=== PATIENT | male | born 1970 | race Caucasian/White ===

== ENCOUNTER 2017-10-03 19:47 | Inpatient (IN) | payer OTHER ==
[2017-10-03 20:01] VITALS: BMI 24.1
--- NOTE | 2017-10-03 22:02 | HP ---
Admission ROS [facility] Chief Complaint: Seeking admission to rehab Allergies/Adverse Reactions: Allergies Allergy/AdvReac Type Severity Reaction Status Date / Time No Known Allergies Allergy Verified 10/03/17 21:58 History of Present Illness: 47 years old male with a history of alcohol dependence is seeking admission to rehab. Patient has been to previous rehab at [facility]. He has past medical history of anxiety and depression. He denies suicidal ideation at this time. This is his first admission to [facility]. Exam Limitations: No Limitations - Ebola screening Have you traveled outside of the country in the last 21 days: No Have you had contact with anyone from an Ebola affected area: No Have you been sick,other than usual withdrawal symptoms: No Do you have a fever: No - Review of Systems Constitutional: No Symptoms Reported EENT: reports: No Symptoms Reported Respiratory: reports: No Symptoms reported Cardiac: reports: No Symptoms Reported GI: reports: No Symptoms Reported : reports: No Symptoms Reported Musculoskeletal: reports: No Symptoms Reported Integumentary: reports: No Symptoms Reported Neuro: reports: No Symptoms reported Endocrine: reports: No Symptoms Reported Psychiatric: reports: No Sypmtoms Reported, Orientated x3 Other Systems: Reviewed and Negative Patient History - Patient Medical History Hx Anemia: No Hx Asthma: No Hx Chronic Obstructive Pulmonary Disease (COPD): No Hx Cancer: No Hx Cardiac Disorders: No Hx Congestive Heart Failure: No Hx Hypertension: No Hx Hypercholesterolemia: No HX Cerebrovascular Accident: No Hx Seizures: No Hx Diabetes: No Hx Gastrointestinal Disorders: No Hx Liver Disease: No Hx Genitourinary Disorders: No Hx Sexually Transmitted Disorders: No Hx Renal Disease (ESRD): No Hx Thyroid Disease: No Hx Human Immunodeficiency Virus (HIV): No (Negative July 2017) Hx Hepatitis C: No (Negative July 2017) Hx Depression: Yes Hx Suicide Attempt: No (Denies suicidal ideation at this time) Hx Bipolar Disorder: Yes Hx Schizophrenia: No - Patient Surgical History Past Surgical History: Yes Hx Neurologic Surgery: No Hx Cataract Extraction: No Hx Cardiac Surgery: No Hx Lung Surgery: No Hx Abdominal Surgery: Yes (KIDNEY SURGERY 1991) Hx Appendectomy: No Hx Cholecystectomy: No Hx Genitourinary Surgery: No Hx Orthopedic Surgery: No - PPD History Previous Implant?: No Implanted On Prior [facility] Admission?: No PPD to be Administered?: Yes - Reproductive History Patient is a Female of Child Bearing Age (11 -55 yrs old): No (MALE) - Smoking Cessation Smoking history: Current every day smoker Have you smoked in the past 12 months: Yes Aproximately how many cigarettes per day: 10 Hx Chewing Tobacco Use: No Initiated information on smoking cessation: Yes 'Breaking Loose' booklet given: 10/03/17 - Substances Abused Alcohol Route: Oral Frequency: Daily Amount used: VODKA - 1/2 LITER Age of first use: 13 Date of Last Use: 09/29/17 Family Disease History - Family Disease History Family Disease History: Diabetes: Mother (ALCOHOLIC), CA: Father (ASBESTOS RELATED- ), Other: Mother Admission Physical Exam [facility] - Vital Signs Vital Signs: Vital Signs - 24 hr 10/03/17 20:00 Temperature 97.6 F Pulse Rate 88 Respiratory 18 Rate Blood Pressure 131/91 - Physical General Appearance: Yes: Within Normal Limits HEENTM: Yes: EOMI, Normal ENT Inspection, Normal Voice, IZZY Respiratory: Yes: Lungs Clear, Normal Breath Sounds, No Respiratory Distress Neck: Yes: Supple Breast: Yes: Breast Exam Deferred Cardiology: Yes: Regular Rhythm, Regular Rate, S1, S2 Abdominal: Yes: Normal Bowel Sounds, Soft Genitourinary: Yes: Within Normal Limits Back: Yes: Normal Inspection Musculoskeletal: Yes: Within Normal Limits Extremities: Yes: Normal Inspection Neurological: Yes: Alert, Normal Mood/Affect Integumentary: Yes: Dry Lymphatic: Yes: Within Normal Limits - Diagnostic (1) Alcohol dependence with uncomplicated withdrawal Current Visit: Yes Status: Chronic (2) Anxiety Current Visit: Yes Status: Chronic (3) Depression Current Visit: Yes Status: Chronic Qualifiers: Depression Type: unspecified Qualified Code(s): F32.9 - Major depressive disorder, single episode, unspecified Cleared for Admission [facility] - Detox or Rehab [facility] Level of Care: Observation Bed Claeared for Rehab Admission: Yes [facility] Breath Alcohol Content Breath Alcohol Content: 0 Urine Drug Screen - Results Drug Screen Negative: Yes Urine Drug Screen Results: BZO-Benzodiazepines Inpatient Rehab Admission - Initial Determination Are CD services needed?: Yes Free of communicable disease: Yes Not in need of hospitalization: Yes - Rehab Admission Criteria Previous failed treatment: Yes Poor recovery environment: Yes Comorbidities: Yes Lacks judgement: No Patient is meeting Inpatient Rehab admission criteria:: Yes
[2017-10-03] MEDS ORDERED: LOPERAMIDE HCL 2 MG CAPSULE PO PRN (22:15)
[2017-10-03] MEDS ORDERED: guaiFENesin/D-METHORPHAN HB 10 ML UNIT-DOSE CUPS PO PRN (22:15)
[2017-10-03] MEDS ORDERED: NICOTINE POLACRILEX 2 MG GUM BUC PRN (22:15)
[2017-10-03] MEDS ORDERED: MAGNESIUM CITRATE 300 ML BOTTLE PO PRN (22:15)
[2017-10-03] MEDS ORDERED: P-EPHED 60MG/TRIPROLIDI 2.5MG TABLET PO PRN (22:15)
[2017-10-03] MEDS ORDERED: ACETAMINOPHEN 325 MG TABLET (FP) PO PRN (22:15)
[2017-10-03] MEDS ORDERED: MENTHOL/PHENOL 1 EACH UD MM PRN (22:15)
[2017-10-03] MEDS ORDERED: MAGNESIUM HYDROX 2400MG/30ML ORAL SUSPENSION 30 ML CUP PO PRN (22:15)
[2017-10-03] MEDS ORDERED: MAG HYDROX/AL HYDROX/SIMETH 30 ML UNIT-DOSE CUP PO PRN (22:15)
[2017-10-04] MEDS ORDERED: TUBERCULIN PPD 5 TU/0.1ML VIAL ID ONE (00:58)
[2017-10-04] MEDS: IBUPROFEN 400 MG TABLET (FP) PO PRN ×3 (00:59→21:45)
[2017-10-04] MEDS ORDERED: QUEtiapine FUMARATE 400 MG TABLET PO ONE (01:09)
[2017-10-04] MEDS ORDERED: GABAPENTIN 400 MG CAPSULE (FP) PO ONE ×2 (01:11→01:40)
--- NOTE | 2017-10-04 01:25 | PN ---
[facility] Progress Note Note: Psychiatric nurse practitioner note: Received call from RN on duty. Pt. requesting one time dose of his evening medications. Pharmacy claims reviewed. One time dose of Seroquel 400mg (reduce dosage) and gabapentin 400mg ordered.
[2017-10-04 02:26] LABS: URINE APPEARANCE CLEAR; URINE BILIRUBIN NEGATIVE (NEGATIVE); URINE BLOOD NEGATIVE (NEGATIVE); URINE COLOR LTYELLOW; URINE GLUCOSE (UA) NEGATIVE (NEGATIVE); URINE KETONE NEGATIVE (NEGATIVE); URINE LEUK ESTERASE NEGATIVE (NEGATIVE); URINE NITRITE NEGATIVE (NEGATIVE); URINE PROTEIN NEGATIVE (NEGATIVE); URINE UROBILINOGEN NEGATIVE mg/dL (0.2-1.0)
[2017-10-04] MEDS: NICOTINE 14 MG/24 HOURS TOPICAL PATCH TD SCH (10:14)
[2017-10-04] MEDS: PRENATAL VITAMINS W/ FOLIC ACID TABLET (FP) PO SCH (10:14)
[2017-10-04 10:38] LABS: HEMATOCRIT 40.3 % (35.4-49); HEMOGLOBIN 13.2 GM/dL (11.7-16.9); MCH 30.6 pg (25.7-33.7); MCHC 32.6 g/dl (32.0-35.9); MEAN CELL VOLUME 93.7 fl (80-96); MEAN PLT VOLUME 9.3 fl (7.5-11.1); PLATELET COUNT 221 K/MM3 (134-434); RBC 4.31 M/mm3 (4.00-5.60); RDW 14.5 % (11.9-15.9); WHITE BLOOD COUNT 5.8 K/mm3 (4.0-10.0)
[2017-10-04 11:14] LABS: CHLORIDE 103 mmol/L (98-107); POTASSIUM 3.8 mmol/L (3.5-5.1); SODIUM 140 mmol/L (136-145)
[2017-10-04 11:30] LABS: ALBUMIN 3.5 g/dl (3.4-5.0); ALK PHOS 65 U/L (45-117); ANION GAP 12 (8-16); BILIRUBIN,TOTAL 0.3 mg/dL (0.2-1.0); BLOOD UREA NITROGEN 17 mg/dL (7-18); CALCIUM 9.3 mg/dL (8.5-10.1); CO2 25 mmol/L (21-32); CREATININE 0.8 mg/dL (0.7-1.3); GLUCOSE,RANDOM 94 mg/dL (74-106); SGOT/AST 59 U/L (15-37); SGPT/ALT 42 U/L (12-78); TOT PROT 6.6 g/dl (6.4-8.2)
--- NOTE | 2017-10-04 11:49 | HP ---
Psychiatrist Admission - Data Date of interview: 10/04/17 Admission source: [facility] Identifying data: This is the first 5N inpatient rehabilitation admission for this 47 year old single amel, unemployed and residing with his relatives in . Medical History: lower back pain radiating to arms, s/p kidney surgery in 1991, smokes cigarettes 1/2 PPD. Psychiatric History: Patient reports first treatment in 2000 states he was anxious and his PCP started with xanax. 4-5 years later he saw the psychatrist while in rehabilitation treatment in [place](reports he lived there about 20 years) and was diagnosed as Bipolar disorder and started with Seroquel, Gabapentin and Prestiq, he reports no history of psychiatric hospitalizations, one time visited ER in [place] due to suicidal thoughts and was under observation 72 hours. Reports he was under the care of a psychiatrist at [facility] in but due to his recent relapse was d/c from the program. He currently on Seroquel 800 mg po hs, Gabapentin 400 mg po tid and Prestiq 50 mg po daily. Patient reports he was treated for alcohol addiction with Antabuse and Naltrexone and does not feel that medications were effectitve, but willing to try Campral he never was on. Physical/Sexual Abuse/Trauma History: Denies history of sexual, physical and verbal abuse. Additional Comment: Reports that mother was alcoholic. Longest period of abstinence 6 months. Vital Signs: Vital Signs - 24 hr 10/03/17 10/04/17 10/04/17 20:00 02:06 03:30 Temperature 97.6 F 98.1 F Pulse Rate 88 81 Respiratory 18 20 20 Rate Blood Pressure 131/91 120/81 10/04/17 07:40 Temperature 97.2 F L Pulse Rate 81 Respiratory 18 Rate Blood Pressure 113/69 Allergies/Adverse Reactions: Allergies Allergy/AdvReac Type Severity Reaction Status Date / Time Fish Containing Products Allergy Intermediate Hives Verified 10/04/17 00:43 Date of last physical exam: 10/04/17 Concur with the findings of this exam: Yes - Substance Abuse/Tx History Hx Alcohol Use: Yes Hx Substance Use: No Substance Use Type: Alcohol (daily ) Hx Substance Use Treatment: Yes ([facility], rehab. in [place].) Mental Status Exam - Mental Status Exam Alert and Oriented to: Time, Place, Person Cognitive Function: Good Patient Appearance: Well Groomed Mood: Hopeful Affect: Appropriate, Mood Congruent Patient Behavior: Appropriate, Cooperative Speech Pattern: Clear, Appropriate Voice Loudness: Normal Thought Process: Intact, Goal Oriented Thought Disorder: Not Present Hallucinations: Denies Suicidal Ideation: Denies Homicidal Ideation: Denies Insight/Judgement: Fair Sleep: Fair Appetite: Fair Muscle strength/Tone: Normal Gait/Station: Normal Psychiatric Findings - Problem List ([place] 1, 2,3) (1) Alcohol dependence Current Visit: Yes Status: Acute (2) Nicotine dependence Current Visit: Yes Status: Acute (3) Bipolar II disorder Current Visit: Yes Status: Acute (4) Bipolar I disorder, most recent episode depressed Current Visit: Yes Status: Acute - Initial Treatment Plan Initial Treatment Plan: Will continue his current medications, will add Campral 666 mg po tid, side-effects and benefits discussed with the patient, he agreed to start Campral, will monitor rpogress as needed.
[2017-10-04] MEDS ORDERED: PNEUMOC 13-VAL CONJ-DIP CRM/PF 0.5 ML DISP.SYRIN IM ONE (12:00)
[2017-10-04] MEDS ORDERED: FLU VACCINE QUAD 60 MCG/0.5 ML (MDV 17-18) IM ONE (12:00)
[2017-10-04] MEDS ORDERED: PNEUMOCOCCAL 23 VACCINE 0.5 ML VIAL IM ONE (12:00)
[2017-10-04] MEDS: ACAMPROSATE CALCIUM 333 MG TABLET.DR PO SCH ×2 (14:29→21:43)
[2017-10-04] MEDS: GABAPENTIN 400 MG CAPSULE (FP) PO SCH ×2 (14:29→21:43)
--- NOTE | 2017-10-04 17:12 | EKG ---
Test Reason : Blood Pressure : / mmHG Vent. Rate : 085 BPM Atrial Rate : 085 BPM P-R Int : 158 ms QRS Dur : 084 ms QT Int : 350 ms P-R-T Axes : 054 010 066 degrees QTc Int : 416 ms NORMAL SINUS RHYTHM POSSIBLE LEFT ATRIAL ENLARGEMENT BORDERLINE ECG NO PREVIOUS ECGS AVAILABLE Confirmed by TEJA CHOWDARY, KARLOS ([id number]) on 10/04/2017 5:12:31 PM Referred By: Confirmed By:KARLOS LEZAMA MD
[2017-10-04] MEDS: THIAMINE HCL 100 MG TABLET (FP) PO SCH (21:42)
[2017-10-04] MEDS: QUEtiapine FUMARATE 400 MG TABLET PO SCH ×2 (23:08→23:46)
[2017-10-05] MEDS: ACAMPROSATE CALCIUM 333 MG TABLET.DR PO SCH ×3 (06:41→21:29)
[2017-10-05] MEDS: GABAPENTIN 400 MG CAPSULE (FP) PO SCH ×3 (06:41→21:29)
[2017-10-05] MEDS: PATIENT'S OWN MEDICATION (NON-FORMULARY) (Desvenlafaxine Succinate [Pristiq] 50 MG) PO SCH (07:02)
[2017-10-05] MEDS: NICOTINE 14 MG/24 HOURS TOPICAL PATCH TD SCH (10:27)
[2017-10-05] MEDS: PRENATAL VITAMINS W/ FOLIC ACID TABLET (FP) PO SCH (10:28)
[2017-10-05] MEDS: IBUPROFEN 400 MG TABLET (FP) PO PRN (10:29)
[2017-10-05] MEDS ORDERED: NICOTINE 21 MG/24 HOURS TOPICAL PATCH TD SCH (12:04)
[2017-10-05] MEDS ORDERED: NICOTINE 21 MG/24 HOURS TOPICAL PATCH TD ONE (12:40)
[2017-10-05] MEDS: QUEtiapine FUMARATE 400 MG TABLET PO SCH (21:29)
[2017-10-05] MEDS: THIAMINE HCL 100 MG TABLET (FP) PO SCH (21:29)
[2017-10-06] MEDS: ACAMPROSATE CALCIUM 333 MG TABLET.DR PO SCH ×3 (06:07→21:19)
[2017-10-06] MEDS: GABAPENTIN 400 MG CAPSULE (FP) PO SCH ×3 (06:07→21:19)
[2017-10-06] MEDS: PATIENT'S OWN MEDICATION (NON-FORMULARY) (Desvenlafaxine Succinate [Pristiq] 50 MG) PO SCH (06:07)
[2017-10-06] MEDS: NICOTINE 21 MG/24 HOURS TOPICAL PATCH TD SCH (10:31)
[2017-10-06] MEDS: PRENATAL VITAMINS W/ FOLIC ACID TABLET (FP) PO SCH (10:31)
[2017-10-06] MEDS ORDERED: COLLOIDAL OATMEAL 1 BAR EACH TP PRN (13:55)
[2017-10-06] MEDS: IBUPROFEN 400 MG TABLET (FP) PO PRN (14:30)
[2017-10-06] MEDS: THIAMINE HCL 100 MG TABLET (FP) PO SCH (21:19)
[2017-10-06] MEDS: QUEtiapine FUMARATE 400 MG TABLET PO SCH (21:19)
[2017-10-07] MEDS: ACAMPROSATE CALCIUM 333 MG TABLET.DR PO SCH ×3 (06:02→21:17)
[2017-10-07] MEDS: PATIENT'S OWN MEDICATION (NON-FORMULARY) (Desvenlafaxine Succinate [Pristiq] 50 MG) PO SCH (06:03)
[2017-10-07] MEDS: GABAPENTIN 400 MG CAPSULE (FP) PO SCH ×3 (06:03→21:17)
[2017-10-07] MEDS: PRENATAL VITAMINS W/ FOLIC ACID TABLET (FP) PO SCH (09:55)
[2017-10-07] MEDS: NICOTINE 21 MG/24 HOURS TOPICAL PATCH TD SCH (09:56)
[2017-10-07] MEDS: IBUPROFEN 400 MG TABLET (FP) PO PRN ×2 (10:27→21:18)
[2017-10-07] MEDS: THIAMINE HCL 100 MG TABLET (FP) PO SCH (21:17)
[2017-10-07] MEDS: QUEtiapine FUMARATE 400 MG TABLET PO SCH (21:20)
[2017-10-08] MEDS: GABAPENTIN 400 MG CAPSULE (FP) PO SCH ×3 (06:09→21:21)
[2017-10-08] MEDS: PATIENT'S OWN MEDICATION (NON-FORMULARY) (Desvenlafaxine Succinate [Pristiq] 50 MG) PO SCH (06:10)
[2017-10-08] MEDS: ACAMPROSATE CALCIUM 333 MG TABLET.DR PO SCH ×3 (06:10→21:21)
[2017-10-08] MEDS: IBUPROFEN 400 MG TABLET (FP) PO PRN ×2 (06:11→14:49)
[2017-10-08] MEDS: PRENATAL VITAMINS W/ FOLIC ACID TABLET (FP) PO SCH (10:10)
[2017-10-08] MEDS: NICOTINE 21 MG/24 HOURS TOPICAL PATCH TD SCH (10:10)
[2017-10-08] MEDS: QUEtiapine FUMARATE 400 MG TABLET PO SCH (21:21)
[2017-10-08] MEDS: THIAMINE HCL 100 MG TABLET (FP) PO SCH (21:21)
[2017-10-09] MEDS: ACAMPROSATE CALCIUM 333 MG TABLET.DR PO SCH ×3 (06:02→21:22)
[2017-10-09] MEDS: PATIENT'S OWN MEDICATION (NON-FORMULARY) (Desvenlafaxine Succinate [Pristiq] 50 MG) PO SCH (06:02)
[2017-10-09] MEDS: IBUPROFEN 400 MG TABLET (FP) PO PRN ×2 (06:02→14:43)
[2017-10-09] MEDS: GABAPENTIN 400 MG CAPSULE (FP) PO SCH ×3 (06:02→21:22)
[2017-10-09] MEDS: NICOTINE 21 MG/24 HOURS TOPICAL PATCH TD SCH (10:05)
[2017-10-09] MEDS: PRENATAL VITAMINS W/ FOLIC ACID TABLET (FP) PO SCH (10:06)
--- NOTE | 2017-10-09 14:43 | PN ---
S Progress Note (SOAP) Subjective: shakes, back pain, as per patient he completed a medical detox for alcohol prior to entering rehab Objective: 10/09/17 14:40 Vital Signs Temperature 97.1 F L 10/09/17 06:58 Pulse Rate 70 10/09/17 06:58 Respiratory Rate 18 10/09/17 06:58 Blood Pressure 114/77 10/09/17 06:58 O2 Sat by Pulse Oximetry (%) Laboratory Last Values WBC 5.8 K/mm3 (4.0-10.0) 10/04/17 07:00 RBC 4.31 M/mm3 (4.00-5.60) 10/04/17 07:00 Hgb 13.2 GM/dL (11.7-16.9) 10/04/17 07:00 Hct 40.3 % (35.4-49) 10/04/17 07:00 MCV 93.7 fl (80-96) 10/04/17 07:00 MCH 30.6 pg (25.7-33.7) 10/04/17 07:00 MCHC 32.6 g/dl (32.0-35.9) 10/04/17 07:00 RDW 14.5 % (11.9-15.9) 10/04/17 07:00 Plt Count 221 K/MM3 (134-434) 10/04/17 07:00 MPV 9.3 fl (7.5-11.1) 10/04/17 07:00 Sodium 140 mmol/L (136-145) 10/04/17 07:00 Potassium 3.8 mmol/L (3.5-5.1) 10/04/17 07:00 Chloride 103 mmol/L (98-107) 10/04/17 07:00 Carbon Dioxide 25 mmol/L (21-32) 10/04/17 07:00 Anion Gap 12 (8-16) 10/04/17 07:00 BUN 17 mg/dL (7-18) 10/04/17 07:00 Creatinine 0.8 mg/dL (0.7-1.3) 10/04/17 07:00 Creat Clearance w eGFR > 60 (>60) 10/04/17 07:00 Random Glucose 94 mg/dL (74-106) 10/04/17 07:00 Calcium 9.3 mg/dL (8.5-10.1) 10/04/17 07:00 Total Bilirubin 0.3 mg/dL (0.2-1.0) 10/04/17 07:00 AST 59 U/L (15-37) H 10/04/17 07:00 ALT 42 U/L (12-78) 10/04/17 07:00 Alkaline Phosphatase 65 U/L (45-117) 10/04/17 07:00 Total Protein 6.6 g/dl (6.4-8.2) 10/04/17 07:00 Albumin 3.5 g/dl (3.4-5.0) 10/04/17 07:00 Urine Color Ltyellow 10/03/17 20:00 Urine Appearance Clear 10/03/17 20:00 Urine pH 7.0 (5.0-8.0) 10/03/17 20:00 Ur Specific [place] 1.008 (1.001-1.035) 10/03/17 20:00 Urine Protein Negative (NEGATIVE) 10/03/17 20:00 Urine Glucose (UA) Negative (NEGATIVE) 10/03/17 20:00 Urine Ketones Negative (NEGATIVE) 10/03/17 20:00 Urine Blood Negative (NEGATIVE) 10/03/17 20:00 Urine Nitrite Negative (NEGATIVE) 10/03/17 20:00 Urine Bilirubin Negative (NEGATIVE) 10/03/17 20:00 Urine Urobilinogen Negative mg/dL (0.2-1.0) 10/03/17 20:00 Ur Leukocyte Esterase Negative (NEGATIVE) 10/03/17 20:00 RPR Titer Nonreactive (NONREACTIVE) 10/04/17 07:00 Hepatitis C Antibody 0.1 s/co ratio (0.0-0.9) 10/04/17 07:00 HIV 1&2 Antibody Screen Negative 10/04/17 08:00 HIV P24 Antigen Negative 10/04/17 08:00 Labs noted GENERAL APPEARANCE: Well developed, well nourished, alert and cooperative, and appears to be in no acute distress, mild anxious CARDIAC: Normal S1 and S2. No S3, S4 or murmurs. Rhythm is regular. There is no peripheral edema, cyanosis or pallor. LUNGS: Clear to auscultation and percussion without rales, rhonchi, wheezing or diminished breath sounds. Extremities : + tremors b/t hands NEUROLOGICAL: CN II-XII intact. Strength and sensation symmetric and intact throughout. Assessment: 10/09/17 14:42 back pain mild alcohol withdrawal symptoms Plan: Continue to monitor increase fluids flexeril 5mg TID
[2017-10-09] MEDS: CYCLOBENZAPRINE HCL 5 MG TABLET PO SCH (21:22)
[2017-10-09] MEDS: THIAMINE HCL 100 MG TABLET (FP) PO SCH (21:22)
[2017-10-09] MEDS: QUEtiapine FUMARATE 400 MG TABLET PO SCH (21:23)
[2017-10-10] MEDS: GABAPENTIN 400 MG CAPSULE (FP) PO SCH ×3 (06:25→21:33)
[2017-10-10] MEDS: ACAMPROSATE CALCIUM 333 MG TABLET.DR PO SCH ×3 (06:25→21:33)
[2017-10-10] MEDS: CYCLOBENZAPRINE HCL 5 MG TABLET PO SCH ×3 (06:25→21:33)
[2017-10-10] MEDS: PATIENT'S OWN MEDICATION (NON-FORMULARY) (Desvenlafaxine Succinate [Pristiq] 50 MG) PO SCH (06:26)
[2017-10-10] MEDS: NICOTINE 21 MG/24 HOURS TOPICAL PATCH TD SCH (10:02)
[2017-10-10] MEDS: PRENATAL VITAMINS W/ FOLIC ACID TABLET (FP) PO SCH (10:02)
[2017-10-10] MEDS: IBUPROFEN 400 MG TABLET (FP) PO PRN (10:03)
--- NOTE | 2017-10-10 12:51 | PN ---
S Progress Note (SOAP) Subjective: requesting reviewe of bloodwork on admission Objective: 10/10/17 12:50 Laboratory Tests 10/03/17 10/04/17 10/04/17 20:00 07:00 07:00 WBC 5.8 RBC 4.31 Hgb 13.2 Hct 40.3 MCV 93.7 MCH 30.6 MCHC 32.6 RDW 14.5 Plt Count 221 MPV 9.3 Sodium 140 Potassium 3.8 Chloride 103 Carbon Dioxide 25 Anion Gap 12 BUN 17 Creatinine 0.8 Creat Clearance w eGFR > 60 Random Glucose 94 Calcium 9.3 Total Bilirubin 0.3 AST 59 H ALT 42 Alkaline Phosphatase 65 Total Protein 6.6 Albumin 3.5 Urine Color Ltyellow Urine Appearance Clear Urine pH 7.0 Ur Specific [place] 1.008 Urine Protein Negative Urine Glucose (UA) Negative Urine Ketones Negative Urine Blood Negative Urine Nitrite Negative Urine Bilirubin Negative Urine Urobilinogen Negative Ur Leukocyte Esterase Negative RPR Titer Hepatitis C Antibody HIV 1&2 Antibody Screen HIV P24 Antigen 10/04/17 10/04/17 10/04/17 07:00 07:00 08:00 WBC RBC Hgb Hct MCV MCH MCHC RDW Plt Count MPV Sodium Potassium Chloride Carbon Dioxide Anion Gap BUN Creatinine Creat Clearance w eGFR Random Glucose Calcium Total Bilirubin AST ALT Alkaline Phosphatase Total Protein Albumin Urine Color Urine Appearance Urine pH Ur Specific [place] Urine Protein Urine Glucose (UA) Urine Ketones Urine Blood Urine Nitrite Urine Bilirubin Urine Urobilinogen Ur Leukocyte Esterase RPR Titer Nonreactive Hepatitis C Antibody 0.1 HIV 1&2 Antibody Screen Negative HIV P24 Antigen Negative Assessment: 10/10/17 12:50 no abnormalities noted, pateitn counseled reassured. no f/u necessary
[2017-10-10] MEDS: THIAMINE HCL 100 MG TABLET (FP) PO SCH (21:33)
[2017-10-10] MEDS: QUEtiapine FUMARATE 400 MG TABLET PO SCH (21:34)
[2017-10-11] MEDS: PATIENT'S OWN MEDICATION (NON-FORMULARY) (Desvenlafaxine Succinate [Pristiq] 50 MG) PO SCH (06:05)
[2017-10-11] MEDS: ACAMPROSATE CALCIUM 333 MG TABLET.DR PO SCH ×3 (06:05→21:23)
[2017-10-11] MEDS: GABAPENTIN 400 MG CAPSULE (FP) PO SCH ×3 (06:05→21:23)
[2017-10-11] MEDS: CYCLOBENZAPRINE HCL 5 MG TABLET PO SCH ×3 (06:05→21:23)
[2017-10-11] MEDS: NICOTINE 21 MG/24 HOURS TOPICAL PATCH TD SCH (10:18)
[2017-10-11] MEDS: PRENATAL VITAMINS W/ FOLIC ACID TABLET (FP) PO SCH (10:18)
[2017-10-11] MEDS: IBUPROFEN 400 MG TABLET (FP) PO PRN (10:18)
[2017-10-11] MEDS: THIAMINE HCL 100 MG TABLET (FP) PO SCH (21:23)
[2017-10-11] MEDS: QUEtiapine FUMARATE 400 MG TABLET PO SCH (21:24)
[2017-10-12] MEDS: CYCLOBENZAPRINE HCL 5 MG TABLET PO SCH ×3 (06:19→21:27)
[2017-10-12] MEDS: ACAMPROSATE CALCIUM 333 MG TABLET.DR PO SCH ×3 (06:19→21:27)
[2017-10-12] MEDS: PATIENT'S OWN MEDICATION (NON-FORMULARY) (Desvenlafaxine Succinate [Pristiq] 50 MG) PO SCH (06:19)
[2017-10-12] MEDS: GABAPENTIN 400 MG CAPSULE (FP) PO SCH ×3 (06:19→21:27)
[2017-10-12] MEDS: IBUPROFEN 400 MG TABLET (FP) PO PRN ×2 (06:20→14:16)
[2017-10-12] MEDS: NICOTINE 21 MG/24 HOURS TOPICAL PATCH TD SCH (10:09)
[2017-10-12] MEDS: PRENATAL VITAMINS W/ FOLIC ACID TABLET (FP) PO SCH (10:09)
[2017-10-12] MEDS: THIAMINE HCL 100 MG TABLET (FP) PO SCH (21:27)
[2017-10-12] MEDS: QUEtiapine FUMARATE 400 MG TABLET PO SCH (21:27)
[2017-10-13] MEDS: ACAMPROSATE CALCIUM 333 MG TABLET.DR PO SCH ×3 (06:05→21:31)
[2017-10-13] MEDS: GABAPENTIN 400 MG CAPSULE (FP) PO SCH ×3 (06:05→21:32)
[2017-10-13] MEDS: CYCLOBENZAPRINE HCL 5 MG TABLET PO SCH ×3 (06:05→21:32)
[2017-10-13] MEDS: PATIENT'S OWN MEDICATION (NON-FORMULARY) (Desvenlafaxine Succinate [Pristiq] 50 MG) PO SCH (06:06)
[2017-10-13] MEDS: IBUPROFEN 400 MG TABLET (FP) PO PRN ×2 (10:07→21:32)
[2017-10-13] MEDS: PRENATAL VITAMINS W/ FOLIC ACID TABLET (FP) PO SCH (10:07)
[2017-10-13] MEDS: NICOTINE 21 MG/24 HOURS TOPICAL PATCH TD SCH (10:07)
--- NOTE | 2017-10-13 15:34 | PN ---
Psychiatric Progress Note Vital Signs: Vital Signs Period Temp Pulse Resp BP Sys/Merritt Pulse Ox Last 24 Hr 97.8 F 83 16-20 106/70 Date of Session: 10/13/17 Chief Complaint:: progress updat HPI: Patient is addressing alcohol, nicotine dependence comorbid Bipolar II disorder. ROS: ower back pain radiating to arms, s/p kidney surgery in 1991, Current Medications: Active Medications Generic Name Dose Route Start Last Admin Trade Name Freq PRN Reason Stop Dose Admin Acamprosate 666 mg 10/04/17 14:00 10/13/17 14:09 Campral - PO 666 mg TID TERI Administration Acetaminophen 650 mg 10/03/17 22:15 Tylenol - PO Q4H PRN FEVER Al Hydroxide/Mg Hydroxide 30 ml 10/03/17 22:15 Mylanta Oral Suspension - PO Q6H PRN DYSPEPSIA Colloidal Oatmeal 1 applic 10/06/17 13:55 10/06/17 15:37 Aveeno Soap - TP 1 applic DAILY PRN Administration HYGEINE Cyclobenzaprine HCl 5 mg 10/09/17 22:00 10/13/17 14:10 Cyclobenzaprine Hcl PO 5 mg TID TERI Administration Eucalyptus/Menthol/Phenol/Sorbitol 1 each 10/03/17 22:15 10/04/17 01:00 Cepastat Lozenge - MM 1 each Q4H PRN Administration SORE THROAT Gabapentin 400 mg 10/04/17 14:00 10/13/17 14:10 Neurontin - PO 400 mg TID TERI Administration Guaifenesin 10 ml 10/03/17 22:15 10/04/17 01:00 Robitussin Dm - PO 10 ml Q6H PRN Administration COUGH Ibuprofen 400 mg 10/03/17 22:15 10/13/17 10:07 Motrin - PO 400 mg Q6H PRN Administration Pain level 4-6 Loperamide HCl 4 mg 10/03/17 22:15 Imodium - PO Q6H PRN DIARRHEA Magnesium Citrate 300 ml 10/03/17 22:15 Citroma - PO Q48H PRN CONSTIPATION Magnesium Hydroxide 30 ml 10/03/17 22:15 Milk Of Magnesia - PO DAILY PRN CONSTIPATION Nicotine 21 mg 10/06/17 10:00 10/13/17 10:07 Nicoderm Patch - TD 21 mg DAILY TERI Administration Nicotine Polacrilex 2 mg 10/03/17 22:15 Nicorette Gum - BUC Q2H PRN NICOTINE REPLACEMENT RX Non-Formulary Medication 50 mg 10/05/17 07:00 10/13/17 06:06 Desvenlafaxine Succinate [Pristiq] PO 50 mg DAILY@0600 TERI Administration Multivit/Folic Acid/Iron 1 tab 10/04/17 10:00 10/13/17 10:07 Vitamins (Sjr) - PO 1 tab DAILY TERI Administration Pseudoephedrine/Triprolidine 1 combo 10/03/17 22:15 Actifed - PO TID PRN NASAL CONGESTION Quetiapine Fumarate 800 mg 10/04/17 22:00 10/12/17 21:27 Seroquel - PO 800 mg HS TERI Administration Thiamine HCl 100 mg 10/04/17 22:00 10/12/17 21:27 Vitamin B1 - PO 100 mg HS TERI Administration Current Side Effect: No Lab tests ordered: No Lab tests reviewed: Yes Provider note:: Patient was seen today, he focused on his aftercare plans, reports he ubanle to stay sober without this level of care. He reports no side- effects from current medications, he feels better, no craving for alcohol, medications well tolerated, psychotherapy and emotional supports provided. Total face to face time:: 30 Mental Status Exam - Mental Status Exam Alert and Oriented to: Time, Place, Person Cognitive Function: Good Patient Appearance: Well Groomed Mood: Hopeful Affect: Mood Congruent Patient Behavior: Appropriate, Cooperative Speech Pattern: Clear, Appropriate Voice Loudness: Normal Thought Process: Intact, Goal Oriented Thought Disorder: Not Present Hallucinations: Denies Suicidal Ideation: Denies Homicidal Ideation: Denies Insight/Judgement: Fair Sleep: Fair Appetite: Good Muscle strength/Tone: Normal Gait/Station: Normal Psychiatric Treatment Plan - Problem List (1) Alcohol dependence Current Visit: Yes Qualifiers: Substance use status: uncomplicated Qualified Code(s): F10.20 - Alcohol dependence, uncomplicated (2) Nicotine dependence Current Visit: Yes Qualifiers: Nicotine product type: cigarettes (3) Bipolar II disorder Current Visit: Yes
[2017-10-13] MEDS: QUEtiapine FUMARATE 400 MG TABLET PO SCH (21:33)
[2017-10-13] MEDS: THIAMINE HCL 100 MG TABLET (FP) PO SCH (21:33)
[2017-10-14] MEDS: ACAMPROSATE CALCIUM 333 MG TABLET.DR PO SCH ×3 (06:30→21:25)
[2017-10-14] MEDS: PATIENT'S OWN MEDICATION (NON-FORMULARY) (Desvenlafaxine Succinate [Pristiq] 50 MG) PO SCH (06:30)
[2017-10-14] MEDS: CYCLOBENZAPRINE HCL 5 MG TABLET PO SCH ×3 (06:30→21:25)
[2017-10-14] MEDS: GABAPENTIN 400 MG CAPSULE (FP) PO SCH ×3 (06:30→21:25)
[2017-10-14] MEDS: IBUPROFEN 400 MG TABLET (FP) PO PRN ×2 (06:31→21:26)
[2017-10-14] MEDS: PRENATAL VITAMINS W/ FOLIC ACID TABLET (FP) PO SCH (10:07)
[2017-10-14] MEDS: NICOTINE 21 MG/24 HOURS TOPICAL PATCH TD SCH (10:08)
[2017-10-14] MEDS: THIAMINE HCL 100 MG TABLET (FP) PO SCH (21:25)
[2017-10-14] MEDS: QUEtiapine FUMARATE 400 MG TABLET PO SCH (21:25)
[2017-10-15] MEDS: CYCLOBENZAPRINE HCL 5 MG TABLET PO SCH ×3 (06:44→21:27)
[2017-10-15] MEDS: GABAPENTIN 400 MG CAPSULE (FP) PO SCH ×3 (06:44→21:27)
[2017-10-15] MEDS: PATIENT'S OWN MEDICATION (NON-FORMULARY) (Desvenlafaxine Succinate [Pristiq] 50 MG) PO SCH (06:44)
[2017-10-15] MEDS: ACAMPROSATE CALCIUM 333 MG TABLET.DR PO SCH ×3 (06:44→21:27)
[2017-10-15] MEDS: PRENATAL VITAMINS W/ FOLIC ACID TABLET (FP) PO SCH (10:27)
[2017-10-15] MEDS: NICOTINE 21 MG/24 HOURS TOPICAL PATCH TD SCH (10:27)
[2017-10-15] MEDS: THIAMINE HCL 100 MG TABLET (FP) PO SCH (21:27)
[2017-10-15] MEDS: QUEtiapine FUMARATE 400 MG TABLET PO SCH (21:27)
[2017-10-15] MEDS: IBUPROFEN 400 MG TABLET (FP) PO PRN (21:28)
[2017-10-16] MEDS: ACAMPROSATE CALCIUM 333 MG TABLET.DR PO SCH (06:04)
[2017-10-16] MEDS: PATIENT'S OWN MEDICATION (NON-FORMULARY) (Desvenlafaxine Succinate [Pristiq] 50 MG) PO SCH (06:04)
[2017-10-16] MEDS: GABAPENTIN 400 MG CAPSULE (FP) PO SCH (06:05)
[2017-10-16] MEDS: CYCLOBENZAPRINE HCL 5 MG TABLET PO SCH (06:05)
[2017-10-16] MEDS: IBUPROFEN 400 MG TABLET (FP) PO PRN (06:06)
[2017-10-16 07:04] VITALS: BP 109/73; PULSE 79; TEMP 98.4
--- NOTE | 2017-10-16 09:40 | PN ---
[facility] Progress Note Note: Patient has completed today his treatment and met his goals, will continue to address his issues at [facility] for 30 days provided, stable for discharge.
== END 2017-10-16 08:20 | disposition home or self-care (01) | DRG 772 ==
LOC: YASAS 19:47 → Y5N 22:26
PROVIDERS: ADMIT Psychiatry & Neurology Psychiatry; ATTEND Psychiatry & Neurology Psychiatry
PROC: HZ42ZZZ Group Counseling for Substance Abuse Treatment, Cognitive-Behavioral (ICD-10-PCS; principal; 2017-10-03)
DX: F10.230 Alcohol dependence with withdrawal, uncomplicated (principal); F17.210 Nicotine dependence, cigarettes, uncomplicated; F31.81 Bipolar II disorder; F41.9 Anxiety disorder, unspecified; F32.9 Major depressive disorder, single episode, unspecified; M54.5 Low back pain; R25.1 Tremor, unspecified; Z91.013 Allergy to seafood
CPT/HCPCS: 36415; 80053; 81003; 85027; 86593; 86803; 87389; 90688; 90732; 93005; 93010; G0008; G0009